=== PATIENT | female | born 1950 | race Caucasian/White ===

== ENCOUNTER → 2017-02-10 | Outpatient (CLI) | payer MEDICARE, OTHER | END | disposition home or self-care (01) | LOC: RT 12:51 | PROVIDERS: ATTEND Internal Medicine | DX: I25.10 Atherosclerotic heart disease of native coronary artery without angina pectoris (principal) | CPT/HCPCS: 93307 ==

== ENCOUNTER 2020-05-09 15:15 | Emergency (ER) | payer MEDICARE, OTHER ==
[~2020-05-09] VITALS: Ht 154.9 cm; Wt 59.4 kg
[2020-05-09 15:30] VITALS: BP 112/59
--- NOTE | 2020-05-09 15:36 | NUR ---
Note undone in EDM - 05/09/20 at 1608 by GERALD ARRIVAL PT ARRIVED TO ED WITH C/O LEFT SIDE FACIAL DROOP, RIGHT EYE SWELLING, RIGHT EYE PRESSURE THAT IS WORSE IN THE AFTERNOONS AND EVENINGS FOR 2 WEEKS. PT DOES HAVE LEFT SIDE FACIAL DROOP. STROKE ASSESSMENT PERFORMED WITH NO OTHER FINDINGS. BEDSIDE MONITORS APPLIED. VITAL SIGNS STABLE. BED IN LOW LOCKED POSITION.
--- NOTE | 2020-05-09 15:52 | NUR ---
ARRIVAL PT ARRIVED TO ED WITH C/O RIGHT LEG SWELLING FROM KNEE TO FOOT. SWELLING NOTED WITH INCREASED SWELLING NOTED AT NATHAN JUST BELOW THE KNEE. NO REDNESS OR WARMTH NOTED. POSTERIOR TIBIAL AND DORSALIS PEDIS PULSES PALPABLE. NO PAIN WITH FLEXION OR EXTENTION OF FOOT/LEG. PT WAS TREATED SEVERAL DAYS AGO FOR THIS IN THE CLINIC WHERE SHE RECEIVED TORADOL AND FELXIRIL WHICH HAS GIVEN HER NO RELIEF. BEDSIDE MONITORS APPLIED. VITAL SIGNS STABLE. BED IN LOW LOCKED POSITION. SPOUSE AT BEDSIDE.
[2020-05-09 16:09] VITALS: BP 148/84
--- NOTE | 2020-05-09 16:13 | ER.PDOC ---
General Chief Complaint: Requesting Medical Care Stated Complaint: SWELLING OF RIGHT LEG Time seen by MD: 16:12 Source: patient Exam Limitations: no limitations History of Present Illness Initial Comments Right leg swelling for 3 days, no pain, fever, chills or redness. No injury or pain. Recent Injury: No Where: home Severity: moderate Exacerbated By: nothing Relieved By: nothing Past Medical History Medical History: hypertension Family History Significant Family History: no pertinent family hx Social History Smoking: non-smoker Review of Systems Constitutional: no symptoms reported EENTM: no symptoms reported Respiratory: no symptoms reported Cardiovascular: no symptoms reported Gastrointestinal: no symptoms reported Musculoskeletal: see HPI All Other Systems: Reviewed and Negative Physical Exam General Appearance: Alert, No Apparent Distress Lower Extremity: swelling (right leg, no tenderness, redness or erytherma) Joint Exam: joints nml, nml ROM, nml gait/weight bearing Vascular: no vascular compromise, pulses full/equal Neuro/Psych: sensation nml, motor nml, oriented x3, CN's nml as tested, mood/affect nml Skin: color nml, warm/dry, no rash Back/Neck: nml inspection EENT: eyes inspection nml, ENT inspection nml, pharynx nml Respiratory: no resp distress, breath sounds nml CVS: reg rate & rhythm, heart sounds nml Abdomen: non-tender, no organomegaly, no bruit/mass Results/Orders Results/Orders Orders - THAD GREGORIO MD Cbc With Auto Diff (05/09/20 16:07) Comprehensive Metabolic Panel (05/09/20 16:07) PT (05/09/20 16:07) Partial Thromboplastin Time. (05/09/20 16:07) D-Dimer (05/09/20 16:07) Us Rt Vein U/L (05/09/20 16:07) Vital Signs Date Time Temp Pulse Resp B/P (MAP) Pulse Ox O2 Delivery O2 Flow Rate FiO2 05/09/20 16:15 98.5 77 16 148/84 (105) 98 Room Air 05/09/20 16:09 98.5 77 16 98 05/09/20 16:09 98.5 77 16 148/84 (105) 98 Room Air 05/09/20 16:09 98.5 77 16 Laboratory Tests Test 10/8/20 16:48 White Blood Count 6.0 10^3/uL (4.5-11.0) Red Blood Count 4.37 10^6/uL (4.00-5.20) Hemoglobin 14.2 g/dL (12.0-15.0) Hematocrit 41.0 % (36.0-46.0) Mean Corpuscular Volume 93.8 fL (78-100) Mean Corpuscular Hemoglobin 32.5 pg (26-34) Mean Corpuscular Hemoglobin Concent 34.6 g/dL (33-36.5) Red Cell Distribution Width 12.6 % (11.5-14.5) Platelet Count 317 10^3/uL (150-400) Mean Platelet Volume 9.5 fL (7.8-11.0) Neutrophils (%) (Auto) 47.3 % (41.0-85.0) Lymphocytes (%) (Auto) 34.7 % (24.0-44.0) Monocytes (%) (Auto) 13.3 % (5.0-12.0) H Neutrophils # (Auto) 2.9 10^3/uL (1.8-7.7) Lymphocytes # (Auto) 2.09 10^3/uL1 (1.0-4.8) Monocytes # (Auto) 0.8 10^3/uL (0.3-0.8) Absolute Immature Granulocyte (auto 0.01 10^3 u/L (0-2) Absolute Eosinophils (auto) 0.2 10^3/uL (0.0-0.2) Immature Granulocytes % 0.20 % (0.00-0.50) Eosinophils % 3.2 % (0.0-5.0) Basophils % 1.3 % (0.0-0.2) H Basophils # 0.1 10^3/uL (0.0-0.1) Prothrombin Time 9.9 SEC (9.3-11.3) Prothrombin Time INR (Non-Therap) 1.0 Activated Partial Thromboplast Time 24.5 SEC (24.67-30.72) D-Dimer 0.33 mg/L (0.19-0.49) Sodium Level 140 mmol/L (132-145) Potassium Level 4.1 mmol/L (3.6-5.2) Chloride Level 106.0 mmol/L (96-109) Carbon Dioxide Level 24.8 mmol/L (20.0-32) Anion Gap 13.3 Blood Urea Nitrogen 20 mg/dL (7-18) H Creatinine 1.03 mg/dL (0.59-1.40) Estimated GFR () 63.9 (>/=60) Est GFR (CKD-EPI)(Non-Afr Nauruan) 52.8 (>/=60) BUN/Creatinine Ratio 19.0 Glucose Level 95 mg/dL (70-110) Calcium Level 9.5 mg/dL (8.4-10.5) Total Bilirubin 0.3 mg/dL (0.2-1.0) Aspartate Amino Transferase (AST) 21 U/L (0-35) Alanine Aminotransferase (ALT) 20 U/L (12-78) Alkaline Phosphatase 80 U/L (50-136) Total Protein 7.0 g/dL (6.4-8.2) Albumin 3.4 g/dL (3.4-5.0) Globulin 3.6 Albumin/Globulin Ratio 0.944 Progress Progress US RLE: No evidence of right lower extremity deep vein thrombosis. I wanted to order CT of RLE with and without contrast but patient told me that she will follow up with her PCP tomorrow and have it done as an out patient. Her labs are unremarkable. ER DEPART Departure Time of Disposition: 18:04 Disposition: 01 HOME, SELF-CARE Impression: Primary Impression: Right leg swelling Condition: Stable Referrals: SHANNON LOWRY (PCP) PRIMARY CARE PROVIDER Additional Instructions: F/U with your PCP tomorrow Elevate leg while in bed Return to ED if worsening swelling or concerns Duration or Time Spent with Pa: 45 min THAD GREGORIO MD May 09, 2020 16:13
[2020-05-09 16:15] VITALS: BP 148/84
[2020-05-09 16:58] LABS: BASOPHIL # 0.1 10^3/uL (0.0-0.1); BASOPHIL % 1.3 % (0.0-0.2); EOSINOPHIL # 0.2 10^3/uL (0.0-0.2); EOSINOPHIL % 3.2 % (0.0-5.0); LYMPHOCYTES # 2.09 10^3/uL1 (1.0-4.8); LYMPHOCYTES % 34.7 % (24.0-44.0); MEAN CORP HGB 32.5 pg (26-34); MONOCYTES # 0.8 10^3/uL (0.3-0.8); MONOCYTES % 13.3 % (5.0-12.0); NEUTROPHIL # 2.9 10^3/uL (1.8-7.7); NEUTROPHILS % 47.3 % (41.0-85.0); PLATELET COUNT 317 10^3/uL (150-400); RED CELL DISTRIBUTION WIDTH 12.6 % (11.5-14.5)
[2020-05-09 17:16] LABS: CALCIUM 9.5 mg/dL (8.4-10.5); CARBON DIOXIDE 24.8 mmol/L (20.0-32)
--- NOTE | 2020-05-09 17:43 | DIREP ---
PROCEDURE:US DUPLEX EXTREM VEINS UNILATER/LIMITED-RT COMPARISON:None. INDICATIONS:Leg swelling TECHNIQUE:The right lower extremity was evaluated utilizing castellano scale images with segmental compression, color Doppler, and spectral Doppler with respiratory variation and augmentation. FINDINGS: Common femoral vein:Patent Profunda femoris vein: Patent Superficial femoral vein:Patent Popliteal vein:Patent Posterior tibial vein:Patent Peroneal vein: Patent Waveforms: Within normal limits. CONCLUSION:No evidence of right lower extremity deep vein thrombosis. Dictated by: [facility] Phys[facility] on 05/09/2020 at 05:33 PM bs
== END 2020-05-09 18:16 | disposition home or self-care (01) ==
LOC: ER 15:15
DX: I10 Essential (primary) hypertension (principal); R22.41 Localized swelling, mass and lump, right lower limb
CPT/HCPCS: 36415; 80053; 85025; 85379; 85610; 85730; 99284; 93971

== ENCOUNTER → 2021-10-17 | Outpatient (CLI) | payer MEDICARE, OTHER ==
--- NOTE | 2021-10-17 13:59 | DIREP ---
PROCEDURE:US SOFT TISSUE COMPARISON:None. INDICATIONS:EDEMA TO POSTERIOR KNEE TECHNIQUE:Sonography of the soft tissues of the right popliteal fossa was performed using grayscale and color Doppler imaging. FINDINGS: MASSES:None. FLUID COLLECTIONS:A complex appearing fluid collection is identified within the right popliteal fossa measuring approximately 5.7 x 3.1 x 4.0 cm. OTHER:Negative. CONCLUSION:Findings of a 5.7 cm diameter localized fluid collection or cystic lesion in the right popliteal fossa consistent with a Jenkins cyst. Dictated by: ARLETTE Physician on 10/17/2021 at 01:49 PM ac
== END | disposition home or self-care (01) ==
LOC: RAD 13:14
PROVIDERS: ATTEND Family Medicine
DX: M25.561 Pain in right knee (principal)
CPT/HCPCS: 76882

== ENCOUNTER → 2024-12-14 | Outpatient (CLI) | payer MEDICARE, OTHER | END | disposition home or self-care (01) | LOC: RAD 16:04 | DX: M17.11 Unilateral primary osteoarthritis, right knee (principal); M25.561 Pain in right knee; M25.761 Osteophyte, right knee | CPT/HCPCS: 73560 ==